=== PATIENT | male | born 1960 | race Caucasian/White ===

== ENCOUNTER 2019-01-12 14:22 | Inpatient (IN) ==
--- NOTE | 2019-01-12 15:22 | DR.DIZZY ---
HPI Time seen Time Seen by Provider: 01/12/19 15:20 PCP Primary Care Physician: DEON CRAFT Complaint Chief Complaint:: PT HAS BEEN HAVING WEAKNESS, BODY HURTS, VOMITING. Source History Provided: Family Member Mode of Arrival Mode of Arrival: Ambulatory Timing Onset of Chief Complaint: 01/09/19 PMH PMH Past Medical History: Yes Past Medical History: CVA and Hypertension Past Surgical History: No Surgical History: No History Family History History of Family Medical Conditions: Yes Family Medical History: Diabetes Mellitus, [place], Coronary Artery Disease and Hypertension Social History Does patient currently use any type of tobacco product: No Have you used tobacco products in the last 12 months: No Type of Tobacco Use: None Does any household member use tobacco: No Do you use any recreational Drugs:: No infectious screening In the last 2 months have you had wt loss of >10#?: NO Have you had fever, night sweats or hemotysis?: No Have you traveled outside the country in the last 6 months?: No Isolation: Standard PE Vital Signs Vitals: Temperature 98.1 F Pulse Rate [Left Brachial] 82 Pulse Rate 89 Respiratory Rate 17 Blood Pressure [Left Arm] 111/65 Blood Pressure 133/66 O2 Sat by Pulse Oximetry 100 ROR Labs Reviewed Result Diagrams: 01/12/19 16:07 01/12/19 16:07 Laboratory: WBC 11.5 X10^3/uL (3.6-10.0) H 01/12/19 16:07 RBC 4.59 X10^6/uL (4.7-6.0) L 01/12/19 16:07 Hgb 13.7 g/dL (13.5-18.0) 01/12/19 16:07 Hct 38.1 % (42.0-54.0) L 01/12/19 16:07 MCV 83.0 fL (80.0-100.0) 01/12/19 16:07 MCH 29.9 pg (27.0-34.0) 01/12/19 16:07 MCHC 36.1 g/dL (33.0-35.0) H 01/12/19 16:07 RDW 13.1 % (11.6-16.5) 01/12/19 16:07 Plt Count 310 X10^3/uL (150.0-450.0) 01/12/19 16:07 MPV 7.2 fL (7.4-11.0) L 01/12/19 16:07 Neut % (Auto) 72.6 % (42.0-75.0) 01/12/19 16:07 Lymph % (Auto) 19.0 % (21.0-51.0) L 01/12/19 16:07 [place] % (Auto) 7.9 % (0.0-13.0) 01/12/19 16:07 Eos % (Auto) 0.1 % (0.9-2.9) L 01/12/19 16:07 Baso % (Auto) 0.4 % (0.2-1.0) 01/12/19 16:07 Neut # (Auto) 8.3 x10^3/uL (2.2-4.8) H 01/12/19 16:07 Lymph # (Auto) 2.2 X10^3/uL (1.3-2.9) 01/12/19 16:07 [place] # (Auto) 0.9 x10^3/uL (0.3-0.8) H 01/12/19 16:07 Eos # (Auto) 0.0 x10^3/uL (0.0-0.2) 01/12/19 16:07 Baso # (Auto) 0.0 X10^3/uL (0.0-0.1) 01/12/19 16:07 Absolute Nucleated RBC 0.0 /100WBC 01/12/19 16:07 Sodium 123 mmol/L (136-145) L* 01/12/19 16:07 Corrected Sodium TNP 01/12/19 16:07 Potassium 2.6 mmol/L (3.5-5.1) L* 01/12/19 16:07 Chloride 85 mmol/L (98-107) L 01/12/19 16:07 Carbon Dioxide 28.7 mmol/L (21-32) 01/12/19 16:07 BUN 6 mg/dL (7-18) L 01/12/19 16:07 Creatinine 0.94 mg/dL (0.70-1.30) 01/12/19 16:07 Est GFR (MDRD) Af Amer > 60 (>60) 01/12/19 16:07 Est GFR (MDRD) Non-Af > 60 (>60) 01/12/19 16:07 Glucose 82 mg/dL (65-99) 01/12/19 16:07 Calcium 9.2 mg/dL (8.5-10.1) 01/12/19 16:07 Corrected Calcium TNP 01/12/19 16:07 Total Bilirubin 0.60 mg/dL (0.2-1.0) 01/12/19 16:07 AST 18 Units/L (15-37) 01/12/19 16:07 ALT 20 Units/L (12-78) 01/12/19 16:07 Alkaline Phosphatase 63 Units/L (46-116) 01/12/19 16:07 Total Protein 7.4 g/dL (6.4-8.2) 01/12/19 16:07 Albumin 3.8 g/dL (3.4-5.0) 01/12/19 16:07 Globulin 3.6 g/dL (2.5-4.5) 01/12/19 16:07 Albumin/Globulin Ratio 1.1 Ratio (1.1-2.1) 01/12/19 16:07 Specimen Type Clean catch urine 01/12/19 16:16 Urine Color Pale yellow (YELLOW) 01/12/19 16:16 Urine Appearance Clear (CLEAR) 01/12/19 16:16 Urine pH 7.0 (5.0 - 8.0) 01/12/19 16:16 Ur Specific [place] 1.010 (1.000-1.030) 01/12/19 16:16 Urine Protein Negative (NEGATIVE) 01/12/19 16:16 Urine Glucose (UA) Negative (NEGATIVE) 01/12/19 16:16 Urine Ketones Negative (NEGATIVE) 01/12/19 16:16 Urine Occult Blood Negative (NEGATIVE) 01/12/19 16:16 Urine Nitrite Negative (NEGATIVE) 01/12/19 16:16 Urine Bilirubin Negative (NEGATIVE) 01/12/19 16:16 Urine Urobilinogen Normal (NORMAL) 01/12/19 16:16 Ur Leukocyte Esterase Negative (NEGATIVE) 01/12/19 16:16 Urine Opiates Screen Negative (NEG=<300) 01/12/19 16:16 Urine Methadone Screen Negative (NEG=<300) 01/12/19 16:16 Ur Barbiturates Screen Negative (NEG=<200) 01/12/19 16:16 Ur Phencyclidine Scrn Negative (NEG=<25) 01/12/19 16:16 Ur Amphetamines Screen Negative (NEG=<1000) 01/12/19 16:16 U Benzodiazepines Scrn Negative (NEG=<200) 01/12/19 16:16 Urine Cocaine Screen Negative (NEG=<300) 01/12/19 16:16 U Marijuana (THC) Screen Negative (NEG=<50) 01/12/19 16:16 Influenza Type A (PCR) Negative (NEGATIVE) 01/12/19 15:07 Influenza Type B (PCR) Negative (NEGATIVE) 01/12/19 15:07
[2019-01-12 16:14] LABS: EOSINOPHILS % (AUTO) 0.1 % (0.9-2.9); HEMOGLOBIN 13.7 g/dL (13.5-18.0); LYMPHOCYTES # (AUTO) 2.2 X10^3/uL (1.3-2.9); MEAN CORPUSCULAR HGB CONC 36.1 g/dL (33.0-35.0); MONOCYTES # (AUTO) 0.9 x10^3/uL (0.3-0.8); RED CELL DISTRIBUTION WIDTH 13.1 % (11.6-16.5)
[2019-01-12 16:20] LABS: BLOOD UREA NITROGEN 6 mg/dL (7-18); CALCIUM 9.2 mg/dL (8.5-10.1); CARBON DIOXIDE 28.7 mmol/L (21-32); CHLORIDE 85 mmol/L (98-107); CREATININE 0.94 mg/dL (0.70-1.30); eGFR NON BLACK RACES > 60 (>60)
[2019-01-12 16:24] LABS: ALANINE AMINOTRANSFERASE 20 Units/L (12-78); ALBUMIN 3.8 g/dL (3.4-5.0); ALKALINE PHOSPHATASE 63 Units/L (46-116); ASPARTATE AMINO TRANSFERASE 18 Units/L (15-37); TOTAL PROTEIN 7.4 g/dL (6.4-8.2)
[2019-01-12 16:26] LABS: BASOPHILS % (AUTO) 0.4 % (0.2-1.0); HEMATOCRIT 38.1 % (42.0-54.0); MEAN CORPUSCULAR HEMOGLOBIN 29.9 pg (27.0-34.0); MEAN PLATELET VOLUME 7.2 fL (7.4-11.0); MONOCYTES % (AUTO) 7.9 % (0.0-13.0); NEUTROPHILS # (AUTO) 8.3 x10^3/uL (2.2-4.8); NEUTROPHILS % (AUTO) 72.6 % (42.0-75.0); PLATELET COUNT 310 X10^3/uL (150.0-450.0); RED BLOOD COUNT 4.59 X10^6/uL (4.7-6.0); WHITE BLOOD COUNT 11.5 X10^3/uL (3.6-10.0)
[2019-01-12 16:28] LABS: BILIRUBIN,URINE NEGATIVE (NEGATIVE); BLOOD/HEMOGLOBIN,URINE NEGATIVE (NEGATIVE); GLUCOSE, URINE NEGATIVE (NEGATIVE); KETONES,URINE NEGATIVE (NEGATIVE); LEUKOCYTE ESTERASE ,URINE NEGATIVE (NEGATIVE); NITRITES,URINE NEGATIVE (NEGATIVE); PROTEIN,URINE NEGATIVE (NEGATIVE); UROBILINOGEN,URINE NORMAL (NORMAL)
[2019-01-12 16:30] LABS: SODIUM 123 mmol/L (136-145)
[2019-01-12 16:33] LABS: APPEARANCE,URINE CLEAR (CLEAR); COLOR,URINE PALE YELLOW (YELLOW)
[2019-01-12] MEDS ORDERED: K-LYTE EFFERVESCENT PO ONE (17:28)
[2019-01-12] MEDS ORDERED: K-LYTE EFFERVESCENT ONE (17:40)
[2019-01-12] MEDS ORDERED: NS 1000 ML 1,000 ML ONE (20:59)
[2019-01-12] MEDS ORDERED: NS 1000 ML 1,000 ML IV SCH (21:00)
[2019-01-12] MEDS ORDERED: MAGNESIUM SULFATE 1 GRAM/100 mL PREMIX 1 GM/100 ML BAG IV PRN (21:26)
[2019-01-12] MEDS ORDERED: KLOR-CON PO PRN (21:26)
[2019-01-12] MEDS ORDERED: MICRO K EXTEN CAP 10 MEQ PO PRN (21:26)
[2019-01-12] MEDS ORDERED: K-RIDER 10 MEQ/NS 100 ML 10 MEQ/100 ML BAG IV PRN (21:26)
[2019-01-12] MEDS ORDERED: POTASSIUM CHLORIDE LIQ 20 MEQ UDC PO PRN (21:26)
[2019-01-12] MEDS ORDERED: POTASSIUM CHL 40 MEQ/NS 0.45% 500 ML IV PRN (21:26)
[2019-01-12] MEDS ORDERED: K-DUR TAB 20 MEQ PO PRN (21:26)
[2019-01-12] MEDS ORDERED: POTASSIUM CHL 60 MEQ/NS 0.45% 500 ML IV PRN (21:26)
[2019-01-13 00:13] LABS: CKMB % 0.6 % (<4); CREATINE KINASE 160 Units/L (39-308); TROPONIN I < 0.02 ng/mL (0-1.5)
[2019-01-13 01:50] LABS: BLOOD UREA NITROGEN 5 mg/dL (7-18); CALCIUM 8.4 mg/dL (8.5-10.1); CARBON DIOXIDE 28.4 mmol/L (21-32); CHLORIDE 89 mmol/L (98-107); CREATININE 0.94 mg/dL (0.70-1.30); eGFR NON BLACK RACES > 60 (>60)
[2019-01-13 01:55] LABS: SODIUM 124 mmol/L (136-145)
[2019-01-13 06:27] LABS: BASOPHILS % (AUTO) 0.5 % (0.2-1.0); EOSINOPHILS % (AUTO) 0.6 % (0.9-2.9); HEMATOCRIT 35.4 % (42.0-54.0); HEMOGLOBIN 12.6 g/dL (13.5-18.0); LYMPHOCYTES # (AUTO) 2.9 X10^3/uL (1.3-2.9); LYMPHOCYTES % (AUTO) 35.6 % (21.0-51.0); MEAN CORPUSCULAR HEMOGLOBIN 29.9 pg (27.0-34.0); MEAN CORPUSCULAR HGB CONC 35.7 g/dL (33.0-35.0); MEAN CORPUSCULAR VOLUME 83.7 fL (80.0-100.0); MEAN PLATELET VOLUME 7.8 fL (7.4-11.0); MONOCYTES # (AUTO) 0.8 x10^3/uL (0.3-0.8); MONOCYTES % (AUTO) 10.1 % (0.0-13.0); NEUTROPHILS # (AUTO) 4.3 x10^3/uL (2.2-4.8); NEUTROPHILS % (AUTO) 53.2 % (42.0-75.0); PLATELET COUNT 284 X10^3/uL (150.0-450.0); RED BLOOD COUNT 4.23 X10^6/uL (4.7-6.0); RED CELL DISTRIBUTION WIDTH 13.2 % (11.6-16.5)
[2019-01-13 07:27] LABS: ALANINE AMINOTRANSFERASE 19 Units/L (12-78); ALBUMIN 3.3 g/dL (3.4-5.0); ALKALINE PHOSPHATASE 53 Units/L (46-116); ASPARTATE AMINO TRANSFERASE 15 Units/L (15-37); BLOOD UREA NITROGEN 6 mg/dL (7-18); CALCIUM 8.7 mg/dL (8.5-10.1); CARBON DIOXIDE 25.5 mmol/L (21-32); CHLORIDE 91 mmol/L (98-107); COR CA(FOR HYPOALB) 9.3 mg/dL (8.5-10.1); CREATININE 0.95 mg/dL (0.70-1.30); MAGNESIUM 2.1 mg/dL (1.7-2.9); SODIUM 127 mmol/L (136-145); TOTAL PROTEIN 6.5 g/dL (6.4-8.2); eGFR NON BLACK RACES > 60 (>60)
[2019-01-13 07:40] LABS: CKMB % 0.6 % (<4); CREATINE KINASE 160 Units/L (39-308); CREATINE KINASE MB < 1.0 ng/mL (0-4.0); TROPONIN I < 0.02 ng/mL (0-1.5)
[2019-01-13] MEDS: POTASSIUM CHLORIDE IV SCH ×2 (10:35)
[2019-01-13] MEDS: NS IV SCH ×2 (10:35)
[2019-01-13] MEDS ORDERED: FLUVIRIN IM ONE (12:30)
--- NOTE | 2019-01-13 19:09 | DR.H&P ---
H&P - History & Physical for Day of: H&P Date: 01/12/19 - Chief Complaint Chief Complaint: WEAKNESS, N/V, BODY ACHES - History of Present Illness History of Present Illness: 58 WM ER ADMISSION AFTER PRESENTING WITH CO WEAKNESS AND FLU LIKE SYMPTOMS FOR SEVERAL DAYS. PT FLU SWAB WAS NEGATIVE IN ER WITH HYPONATREMIA. PT HAS PMH OF MR AND USE OF DIURETIC. PT ADMITTED FOR TREATMENT OF ACUTE DEHYDRATION, ELECTROLYTE IMBALANCE. - Past Medical History Past Medical History: Hypertension, CVA - Past Surgical History Surgical History: No History - Family History Family Medical History: Diabetes Mellitus, Cancer, Coronary Artery Disease - Social History Does patient currently use any type of tobacco product: No Have you used tobacco products in the last 12 months: No Type of Tobacco Use: None Does any household member use tobacco: No Alcohol Use: None Drug Use: None - Medications Home Medications: No Known Drug Allergies Allergy (Verified 12/13/18 12:34) - Review of Systems Constitutional: Weakness Eyes: No Symptoms Reported ENT: No Symptoms Reported Respiratory: No Symptoms Reported Cardiovascular: No Symptoms Reported Gastrointestinal: Nausea, Vomiting, Abdominal Pain Genitourinary: No Symptoms Reported Musculoskeletal: No Symptoms Reported Skin: No Symptoms Reported Neurological: Weakness - Physical Exam Vital Signs: Temperature 97.7 F Pulse Rate [Right Brachial] 91 Pulse Rate [Left Brachial] 78 Pulse Rate 89 Respiratory Rate 18 Blood Pressure [Right Arm] 111/63 Blood Pressure [Left Arm] 115/61 Blood Pressure 133/66 O2 Sat by Pulse Oximetry 99 Oriented: Person Eyes: Normal Ear: Normal Nose: Normal Throat: Dry Respiratory: RLL Diminished, LLL Diminished Cardiovascular: Normal : Normal Auscultation: Bowel Sounds: Increased Tenderness: Epigastric Skin: Normal Musculoskeletal: Normal Psychiatric: Other Affect: Quiet Speech Pattern: Appropriate (HX OF MR, APPROPRIATE RESPONSES ON EXAMINATION ) - Assessment/Plan (1) Hyponatremia Status: Acute Plan: ADMIT, GENTLE HYDRATION. BLOOD PRESSURE CONTROL, I & OS. PAIN NAUSEA CONTROL. VERIFY HOME MEDICATION. REPEAT AM LABS (2) Hypokalemia Status: Acute (3) Abdominal pain Status: Acute (4) Hypertension Status: Acute (5) Intellectual disability Status: Acute - Allergies Allergies/Adverse Reactions: Allergies Allergy/AdvReac Type Severity Reaction Status Date / Time No Known Drug Allergies Allergy Verified 12/13/18 12:34
[2019-01-13] MEDS: ULTRAM PO PRN (20:30)
[2019-01-13] MEDS: VISTARIL PO PRN (20:30)
[2019-01-13] MEDS: RisperDAL TAB 1 MG PO SCH (20:30)
[2019-01-14] MEDS ORDERED: NS 1000 ML 0 ML ONE (00:07)
[2019-01-14] MEDS: NS IV SCH ×6 (00:44→16:48)
[2019-01-14] MEDS: POTASSIUM CHLORIDE IV SCH ×6 (00:44→16:48)
--- NOTE | 2019-01-14 05:19 | RAD ---
Acute abdomen series chest, supine and upright abdomen three views 4 images Indication: Lower mid abdominal pain with nausea and vomiting Comparison: 12/13/2018 radiograph and 07/17/2018 CT abdomen and pelvis Findings: Chest radiograph shows no pneumothorax or effusion. Heart size is within normal limits. There is no free air or pneumatosis. Gas and stool are seen in the colon. No dilated loop of small bowel seen. No abnormal calcific density identified Impression: No acute abnormality seen. Reported By:
[2019-01-14 06:32] LABS: ALANINE AMINOTRANSFERASE 17 Units/L (12-78); ALBUMIN 2.9 g/dL (3.4-5.0); ALKALINE PHOSPHATASE 51 Units/L (46-116); ASPARTATE AMINO TRANSFERASE 14 Units/L (15-37); BLOOD UREA NITROGEN 6 mg/dL (7-18); CALCIUM 8.3 mg/dL (8.5-10.1); CARBON DIOXIDE 28.3 mmol/L (21-32); CHLORIDE 102 mmol/L (98-107); COR CA(FOR HYPOALB) 9.2 mg/dL (8.5-10.1); CREATININE 0.89 mg/dL (0.70-1.30); SODIUM 135 mmol/L (136-145); TOTAL PROTEIN 5.9 g/dL (6.4-8.2); eGFR NON BLACK RACES > 60 (>60)
[2019-01-14 06:38] VITALS: BMI 24.8
[2019-01-14 06:46] LABS: BASOPHILS # (AUTO) 0.1 X10^3/uL (0.0-0.1); BASOPHILS % (AUTO) 1.5 % (0.2-1.0); EOSINOPHILS # (AUTO) 0.1 x10^3/uL (0.0-0.2); HEMATOCRIT 35.1 % (42.0-54.0); HEMOGLOBIN 12.2 g/dL (13.5-18.0); LYMPHOCYTES # (AUTO) 3.2 X10^3/uL (1.3-2.9); LYMPHOCYTES % (AUTO) 35.7 % (21.0-51.0); MEAN CORPUSCULAR HEMOGLOBIN 30.2 pg (27.0-34.0); MEAN CORPUSCULAR HGB CONC 34.8 g/dL (33.0-35.0); MEAN CORPUSCULAR VOLUME 86.8 fL (80.0-100.0); MEAN PLATELET VOLUME 7.4 fL (7.4-11.0); MONOCYTES # (AUTO) 0.8 x10^3/uL (0.3-0.8); MONOCYTES % (AUTO) 8.5 % (0.0-13.0); NEUTROPHILS # (AUTO) 4.7 x10^3/uL (2.2-4.8); NEUTROPHILS % (AUTO) 53.3 % (42.0-75.0); PLATELET COUNT 267 X10^3/uL (150.0-450.0); RED BLOOD COUNT 4.04 X10^6/uL (4.7-6.0); RED CELL DISTRIBUTION WIDTH 13.4 % (11.6-16.5); WHITE BLOOD COUNT 8.9 X10^3/uL (3.6-10.0)
[2019-01-14] MEDS: RisperDAL TAB 1 MG PO SCH ×2 (09:01→20:34)
--- NOTE | 2019-01-14 13:38 | PCM.PROG ---
Progress Note - Progress Note for Day of Date of Exam: 01/13/19 - Subjective Subjective: 58 WM ER ADMISSION WITH ABDOMINAL PAIN, N/V. PT SISTER, DRYWALL APPLICATION SUPERVISOR REPORTS FLU LIKE ILLNESS AND CO N/V EPISODES IN THE RECENT PAST. PT HAS HYPONATREMIA AND HYPOKALEMIC ON ADMISSION. NS IMPROVED TO 127, K 3.0. PT ON GENTLE IV HYDRATION AND POTASSIUM REPLACEMENT. PT CONTINUES WITH UPPER ABDOMINAL PAIN. PT ON PPI, ADDING CARAFATE AND STOOL STUDIES ORDERED. ABD XRAY WITHOUT ACUTE FINDINGS. WILL REPEAT AM LABS - Past Medical Family Social History Past Med/Fam/Surg Hx: No changes since H&P Allergies: Allergies No Known Drug Allergies Allergy (Verified 12/13/18 12:34) - Review of Systems ROS: No change since H&P - Vital Signs and I&O's Vital Signs: Temperature 98.2 F Pulse Rate [Right Brachial] 68 Pulse Rate [Left Brachial] 78 Pulse Rate 89 Respiratory Rate 18 Blood Pressure [Right Arm] 85/53 Blood Pressure [Left Arm] 115/61 Blood Pressure 133/66 O2 Sat by Pulse Oximetry 98 Intake and Output: Intake & Output 01/12/19 01/13/19 01/14/19 01/15/19 11:59 11:59 11:59 11:59 Intake Total 585 / 585 1905 / 1905 Output Total 1050 / 1050 1050 / 1050 Balance -465 / -465 855 / 855 - Physical Exam Oriented: Person Eyes: Normal Ear: Normal Nose: Normal Throat: Dry Respiratory: Normal Cardiovascular: Normal : Normal Auscultation: Bowel Sounds: Increased Tenderness: Epigastric Skin: Normal Musculoskeletal: Normal Psychiatric: Other Affect: Quiet Speech Pattern: Unclear - Laboratory and Diagnostics Result Diagrams: 01/14/19 06:35 01/14/19 05:10 Labs: Laboratory WBC 8.9 X10^3/uL (3.6-10.0) 01/14/19 06:35 RBC 4.04 X10^6/uL (4.7-6.0) L 01/14/19 06:35 Hgb 12.2 g/dL (13.5-18.0) L 01/14/19 06:35 Hct 35.1 % (42.0-54.0) L 01/14/19 06:35 MCV 86.8 fL (80.0-100.0) 01/14/19 06:35 MCH 30.2 pg (27.0-34.0) 01/14/19 06:35 MCHC 34.8 g/dL (33.0-35.0) 01/14/19 06:35 RDW 13.4 % (11.6-16.5) 01/14/19 06:35 Plt Count 267 X10^3/uL (150.0-450.0) 01/14/19 06:35 MPV 7.4 fL (7.4-11.0) 01/14/19 06:35 Neut % (Auto) 53.3 % (42.0-75.0) 01/14/19 06:35 Lymph % (Auto) 35.7 % (21.0-51.0) 01/14/19 06:35 [place] % (Auto) 8.5 % (0.0-13.0) 01/14/19 06:35 Eos % (Auto) 1.0 % (0.9-2.9) 01/14/19 06:35 Baso % (Auto) 1.5 % (0.2-1.0) H 01/14/19 06:35 Neut # (Auto) 4.7 x10^3/uL (2.2-4.8) 01/14/19 06:35 Lymph # (Auto) 3.2 X10^3/uL (1.3-2.9) H 01/14/19 06:35 [place] # (Auto) 0.8 x10^3/uL (0.3-0.8) 01/14/19 06:35 Eos # (Auto) 0.1 x10^3/uL (0.0-0.2) 01/14/19 06:35 Baso # (Auto) 0.1 X10^3/uL (0.0-0.1) 01/14/19 06:35 Absolute Nucleated RBC 0.1 /100WBC 01/14/19 06:35 Sodium 135 mmol/L (136-145) L 01/14/19 05:10 Corrected Sodium TNP 01/14/19 05:10 Potassium 4.0 mmol/L (3.5-5.1) 01/14/19 05:10 Chloride 102 mmol/L (98-107) 01/14/19 05:10 Carbon Dioxide 28.3 mmol/L (21-32) 01/14/19 05:10 BUN 6 mg/dL (7-18) L 01/14/19 05:10 Creatinine 0.89 mg/dL (0.70-1.30) 01/14/19 05:10 Est GFR (MDRD) Af Amer > 60 (>60) 01/14/19 05:10 Est GFR (MDRD) Non-Af > 60 (>60) 01/14/19 05:10 Glucose 87 mg/dL (65-99) 01/14/19 05:10 Calcium 8.3 mg/dL (8.5-10.1) L 01/14/19 05:10 Corrected Calcium 9.2 mg/dL (8.5-10.1) 01/14/19 05:10 Magnesium 2.1 mg/dL (1.7-2.9) 01/13/19 05:41 Total Bilirubin 0.30 mg/dL (0.2-1.0) 01/14/19 05:10 AST 14 Units/L (15-37) L 01/14/19 05:10 ALT 17 Units/L (12-78) 01/14/19 05:10 Alkaline Phosphatase 51 Units/L (46-116) 01/14/19 05:10 Creatine Kinase 160 Units/L (39-308) 01/13/19 05:41 CK-MB (CK-2) < 1.0 ng/mL (0-4.0) 01/13/19 05:41 CK/CKMB % Calc 0.6 % (<4) 01/13/19 05:41 Troponin I < 0.02 ng/mL (0-1.5) 01/13/19 05:41 Total Protein 5.9 g/dL (6.4-8.2) L 01/14/19 05:10 Albumin 2.9 g/dL (3.4-5.0) L 01/14/19 05:10 Globulin 3.0 g/dL (2.5-4.5) 01/14/19 05:10 Albumin/Globulin Ratio 1.0 Ratio (1.1-2.1) L 01/14/19 05:10 Specimen Type Clean catch urine 01/12/19 16:16 Urine Color Pale yellow (YELLOW) 01/12/19 16:16 Urine Appearance Clear (CLEAR) 01/12/19 16:16 Urine pH 7.0 (5.0 - 8.0) 01/12/19 16:16 Ur Specific [place] 1.010 (1.000-1.030) 01/12/19 16:16 Urine Protein Negative (NEGATIVE) 01/12/19 16:16 Urine Glucose (UA) Negative (NEGATIVE) 01/12/19 16:16 Urine Ketones Negative (NEGATIVE) 01/12/19 16:16 Urine Occult Blood Negative (NEGATIVE) 01/12/19 16:16 Urine Nitrite Negative (NEGATIVE) 01/12/19 16:16 Urine Bilirubin Negative (NEGATIVE) 01/12/19 16:16 Urine Urobilinogen Normal (NORMAL) 01/12/19 16:16 Ur Leukocyte Esterase Negative (NEGATIVE) 01/12/19 16:16 Urine Opiates Screen Negative (NEG=<300) 01/12/19 16:16 Urine Methadone Screen Negative (NEG=<300) 01/12/19 16:16 Ur Barbiturates Screen Negative (NEG=<200) 01/12/19 16:16 Ur Phencyclidine Scrn Negative (NEG=<25) 01/12/19 16:16 Ur Amphetamines Screen Negative (NEG=<1000) 01/12/19 16:16 U Benzodiazepines Scrn Negative (NEG=<200) 01/12/19 16:16 Urine Cocaine Screen Negative (NEG=<300) 01/12/19 16:16 U Marijuana (THC) Screen Negative (NEG=<50) 01/12/19 16:16 Influenza Type A (PCR) Negative (NEGATIVE) 01/12/19 15:07 Influenza Type B (PCR) Negative (NEGATIVE) 01/12/19 15:07 - Plan (1) Hyponatremia Status: Acute Plan: GENTLE HYDRATION. BLOOD PRESSURE CONTROL STOP LISINOPRIL/HCTZ. I & OS. PAIN NAUSEA CONTROL, POTASSIUM REPLACEMENT. REPEAT AM LABS (2) Hypokalemia Status: Acute (3) Abdominal pain Status: Acute Plan: ABD SERIES, STOOL STUDIES. PAIN CONTROL (4) Hypertension Status: Acute (5) Intellectual disability Status: Acute
--- NOTE | 2019-01-14 13:44 | PCM.PROG ---
Progress Note - Progress Note for Day of Date of Exam: 01/14/19 - Subjective Subjective: 58 WM ER ADMISSION WITH ABDOMINAL PAIN, N/V. PT SISTER, METAL LOADER REPORTS FLU LIKE ILLNESS AND CO N/V EPISODES IN THE RECENT PAST. PT HAS HYPONATREMIA AND HYPOKALEMIC ON ADMISSION. NS IMPROVED TO 135, K 4.0. PT ON GENTLE IV HYDRATION AND POTASSIUM REPLACEMENT. PT CONTINUES WITH UPPER ABDOMINAL PAIN, MILD EPIGASTRIC TENDERNESS. PT ON PPI, ADDED CARAFATE AND STOOL STUDIES UNCOLLECTED. ABD XRAY WITHOUT ACUTE FINDINGS. METAL LOADER REPORTS HE HAS HX OF "CARDIOMYOPATHY" AND HE HAS NOT HAD HEART CHECKED, SHE IS CONCERNED HIS EPIGASTRIC PAIN IS RELATED TO HIS HEART CONDITION. CE AND EKG REVIEWED WITH PT'S SISTER, WILL OBTAIN ECHO. DISCUSSED NEED FOR CARDIAC FOLLOW UP ON OUTPT BASIS AND EGD FOR GI EVALUATION. - Past Medical Family Social History Past Med/Fam/Surg Hx: No changes since H&P Allergies: Allergies No Known Drug Allergies Allergy (Verified 12/13/18 12:34) - Review of Systems ROS: No change since H&P - Vital Signs and I&O's Vital Signs: Temperature 98.2 F Pulse Rate [Right Brachial] 68 Pulse Rate [Left Brachial] 78 Pulse Rate 89 Respiratory Rate 18 Blood Pressure [Right Arm] 85/53 Blood Pressure [Left Arm] 115/61 Blood Pressure 133/66 O2 Sat by Pulse Oximetry 98 Intake and Output: Intake & Output 01/12/19 01/13/19 01/14/19 01/15/19 11:59 11:59 11:59 11:59 Intake Total 585 / 585 1905 / 1905 Output Total 1050 / 1050 1050 / 1050 Balance -465 / -465 855 / 855 - Physical Exam Oriented: Person Eyes: Normal Ear: Normal Nose: Normal Throat: Dry Respiratory: Normal Cardiovascular: Normal : Normal Auscultation: Bowel Sounds: Increased Tenderness: Epigastric, Mild Skin: Normal Musculoskeletal: Normal Psychiatric: Other Affect: Quiet Speech Pattern: Unclear - Laboratory and Diagnostics Result Diagrams: 01/14/19 06:35 01/14/19 05:10 Labs: Laboratory WBC 8.9 X10^3/uL (3.6-10.0) 01/14/19 06:35 RBC 4.04 X10^6/uL (4.7-6.0) L 01/14/19 06:35 Hgb 12.2 g/dL (13.5-18.0) L 01/14/19 06:35 Hct 35.1 % (42.0-54.0) L 01/14/19 06:35 MCV 86.8 fL (80.0-100.0) 01/14/19 06:35 MCH 30.2 pg (27.0-34.0) 01/14/19 06:35 MCHC 34.8 g/dL (33.0-35.0) 01/14/19 06:35 RDW 13.4 % (11.6-16.5) 01/14/19 06:35 Plt Count 267 X10^3/uL (150.0-450.0) 01/14/19 06:35 MPV 7.4 fL (7.4-11.0) 01/14/19 06:35 Neut % (Auto) 53.3 % (42.0-75.0) 01/14/19 06:35 Lymph % (Auto) 35.7 % (21.0-51.0) 01/14/19 06:35 [place] % (Auto) 8.5 % (0.0-13.0) 01/14/19 06:35 Eos % (Auto) 1.0 % (0.9-2.9) 01/14/19 06:35 Baso % (Auto) 1.5 % (0.2-1.0) H 01/14/19 06:35 Neut # (Auto) 4.7 x10^3/uL (2.2-4.8) 01/14/19 06:35 Lymph # (Auto) 3.2 X10^3/uL (1.3-2.9) H 01/14/19 06:35 [place] # (Auto) 0.8 x10^3/uL (0.3-0.8) 01/14/19 06:35 Eos # (Auto) 0.1 x10^3/uL (0.0-0.2) 01/14/19 06:35 Baso # (Auto) 0.1 X10^3/uL (0.0-0.1) 01/14/19 06:35 Absolute Nucleated RBC 0.1 /100WBC 01/14/19 06:35 Sodium 135 mmol/L (136-145) L 01/14/19 05:10 Corrected Sodium TNP 01/14/19 05:10 Potassium 4.0 mmol/L (3.5-5.1) 01/14/19 05:10 Chloride 102 mmol/L (98-107) 01/14/19 05:10 Carbon Dioxide 28.3 mmol/L (21-32) 01/14/19 05:10 BUN 6 mg/dL (7-18) L 01/14/19 05:10 Creatinine 0.89 mg/dL (0.70-1.30) 01/14/19 05:10 Est GFR (MDRD) Af Amer > 60 (>60) 01/14/19 05:10 Est GFR (MDRD) Non-Af > 60 (>60) 01/14/19 05:10 Glucose 87 mg/dL (65-99) 01/14/19 05:10 Calcium 8.3 mg/dL (8.5-10.1) L 01/14/19 05:10 Corrected Calcium 9.2 mg/dL (8.5-10.1) 01/14/19 05:10 Magnesium 2.1 mg/dL (1.7-2.9) 01/13/19 05:41 Total Bilirubin 0.30 mg/dL (0.2-1.0) 01/14/19 05:10 AST 14 Units/L (15-37) L 01/14/19 05:10 ALT 17 Units/L (12-78) 01/14/19 05:10 Alkaline Phosphatase 51 Units/L (46-116) 01/14/19 05:10 Creatine Kinase 160 Units/L (39-308) 01/13/19 05:41 CK-MB (CK-2) < 1.0 ng/mL (0-4.0) 01/13/19 05:41 CK/CKMB % Calc 0.6 % (<4) 01/13/19 05:41 Troponin I < 0.02 ng/mL (0-1.5) 01/13/19 05:41 Total Protein 5.9 g/dL (6.4-8.2) L 01/14/19 05:10 Albumin 2.9 g/dL (3.4-5.0) L 01/14/19 05:10 Globulin 3.0 g/dL (2.5-4.5) 01/14/19 05:10 Albumin/Globulin Ratio 1.0 Ratio (1.1-2.1) L 01/14/19 05:10 Specimen Type Clean catch urine 01/12/19 16:16 Urine Color Pale yellow (YELLOW) 01/12/19 16:16 Urine Appearance Clear (CLEAR) 01/12/19 16:16 Urine pH 7.0 (5.0 - 8.0) 01/12/19 16:16 Ur Specific [place] 1.010 (1.000-1.030) 01/12/19 16:16 Urine Protein Negative (NEGATIVE) 01/12/19 16:16 Urine Glucose (UA) Negative (NEGATIVE) 01/12/19 16:16 Urine Ketones Negative (NEGATIVE) 01/12/19 16:16 Urine Occult Blood Negative (NEGATIVE) 01/12/19 16:16 Urine Nitrite Negative (NEGATIVE) 01/12/19 16:16 Urine Bilirubin Negative (NEGATIVE) 01/12/19 16:16 Urine Urobilinogen Normal (NORMAL) 01/12/19 16:16 Ur Leukocyte Esterase Negative (NEGATIVE) 01/12/19 16:16 Urine Opiates Screen Negative (NEG=<300) 01/12/19 16:16 Urine Methadone Screen Negative (NEG=<300) 01/12/19 16:16 Ur Barbiturates Screen Negative (NEG=<200) 01/12/19 16:16 Ur Phencyclidine Scrn Negative (NEG=<25) 01/12/19 16:16 Ur Amphetamines Screen Negative (NEG=<1000) 01/12/19 16:16 U Benzodiazepines Scrn Negative (NEG=<200) 01/12/19 16:16 Urine Cocaine Screen Negative (NEG=<300) 01/12/19 16:16 U Marijuana (THC) Screen Negative (NEG=<50) 01/12/19 16:16 Influenza Type A (PCR) Negative (NEGATIVE) 01/12/19 15:07 Influenza Type B (PCR) Negative (NEGATIVE) 01/12/19 15:07 - Plan (1) Hyponatremia Status: Acute Plan: GENTLE HYDRATION. BLOOD PRESSURE CONTROL STOP LISINOPRIL/HCTZ. I & OS. PAIN NAUSEA CONTROL, POTASSIUM REPLACEMENT. REPEAT AM LABS (2) Hypokalemia Status: Acute (3) Abdominal pain Status: Acute Plan: ABD SERIES, STOOL STUDIES. PAIN CONTROL (4) Hypertension Status: Acute (5) Intellectual disability Status: Acute (6) Cardiomyopathy Status: Acute Plan: ECHO, CARIDAC WORKUP ON OUTPT BASIS
[2019-01-14 13:48] LABS: AMYLASE 83 Units/L (25-115); LIPASE 354 Units/L (73-393)
[2019-01-14] MEDS ORDERED: MAALOX or MYLANTA PO PRN (19:29)
[2019-01-14] MEDS: VISTARIL PO PRN (20:34)
[2019-01-14] MEDS: PEPCID TAB 20 MG PO SCH (20:35)
[2019-01-14] MEDS: ULTRAM PO PRN (20:35)
[2019-01-15] MEDS: NS IV SCH ×2 (04:59)
[2019-01-15] MEDS: POTASSIUM CHLORIDE IV SCH ×2 (04:59)
[2019-01-15 05:57] LABS: BASOPHILS # (AUTO) 0.1 X10^3/uL (0.0-0.1); BASOPHILS % (AUTO) 0.9 % (0.2-1.0); EOSINOPHILS # (AUTO) 0.1 x10^3/uL (0.0-0.2); HEMATOCRIT 34.6 % (42.0-54.0); HEMOGLOBIN 11.8 g/dL (13.5-18.0); LYMPHOCYTES # (AUTO) 2.6 X10^3/uL (1.3-2.9); MEAN CORPUSCULAR HGB CONC 34.2 g/dL (33.0-35.0); MEAN CORPUSCULAR VOLUME 87.8 fL (80.0-100.0); MEAN PLATELET VOLUME 7.2 fL (7.4-11.0); MONOCYTES # (AUTO) 0.5 x10^3/uL (0.3-0.8); MONOCYTES % (AUTO) 7.2 % (0.0-13.0); NEUTROPHILS # (AUTO) 4.2 x10^3/uL (2.2-4.8); NEUTROPHILS % (AUTO) 55.9 % (42.0-75.0); PLATELET COUNT 240 X10^3/uL (150.0-450.0); RED BLOOD COUNT 3.95 X10^6/uL (4.7-6.0); RED CELL DISTRIBUTION WIDTH 13.6 % (11.6-16.5); WHITE BLOOD COUNT 7.5 X10^3/uL (3.6-10.0)
[2019-01-15 06:13] LABS: ALANINE AMINOTRANSFERASE 18 Units/L (12-78); ALBUMIN 2.7 g/dL (3.4-5.0); ALKALINE PHOSPHATASE 48 Units/L (46-116); ASPARTATE AMINO TRANSFERASE 14 Units/L (15-37); BLOOD UREA NITROGEN 5 mg/dL (7-18); CALCIUM 8.4 mg/dL (8.5-10.1); CARBON DIOXIDE 26.4 mmol/L (21-32); CHLORIDE 106 mmol/L (98-107); COR CA(FOR HYPOALB) 9.4 mg/dL (8.5-10.1); CREATININE 0.93 mg/dL (0.70-1.30); SODIUM 137 mmol/L (136-145); TOTAL PROTEIN 5.6 g/dL (6.4-8.2); eGFR NON BLACK RACES > 60 (>60)
[2019-01-15] MEDS: PEPCID TAB 20 MG PO SCH (08:13)
[2019-01-15] MEDS: RisperDAL TAB 1 MG PO SCH (08:13)
[2019-01-15] MEDS ORDERED: NS 1000 ML 1,000 ML IV SCH (09:00)
[2019-01-15 12:01] VITALS: BP 140/68
== END 2019-01-15 15:25 | disposition home or self-care (01) | DRG 641 ==
LOC: ER 14:22 → MED/SURG 19:57
PROVIDERS: ADMIT Internal Medicine; ATTEND Internal Medicine
DX: E86.0 Dehydration; R10.84 Generalized abdominal pain; R11.2 Nausea with vomiting, unspecified; E87.6 Hypokalemia; R53.1 Weakness; I42.8 Other cardiomyopathies; I10 Essential (primary) hypertension; E87.1 Hypo-osmolality and hyponatremia; F78 Other intellectual disabilities
CPT/HCPCS: 36415; 74022; 80048; 80053; 80307; 81003; 82150; 82550; 82553; 83690; 83735; 84132; 84295; 84484; 85025; 87502; 90674; 90686; 93005; 93306; 94760; 96365; 97161; 99282; 99284; A4222; Q0177; G0434; J3480; J7030; J8499